=== PATIENT | female | born 1990 | race Two or more races ===

== ENCOUNTER 2022-08-08 16:36 | Inpatient (IN) | payer MEDICAID, OTHER ==
[~2022-08-08] VITALS: Ht 165.1 cm; Wt 81.9 kg
[2022-08-08] MEDS ORDERED: MAGNESIUM 2 G PREMIX 50 ML IV ONE (16:45)
[2022-08-08] MEDS ORDERED: ALBUTEROL (0.083%) 2.5MG/3ML NEB HHN STA (16:45)
[2022-08-08] MEDS ORDERED: IPRATROPIUM BROMIDE (0.02%) 0.5MG/2.5ML NEB HHN STA (16:45)
[2022-08-08] MEDS ORDERED: METHYLPREDNISOLONE SOD SUCC 125 MG/2 ML VIAL IV STA (16:45)
[2022-08-08 17:04] LABS: BASOPHILS % 0.4 % (0.0-2.0); EOSINOPHILS % 1.8 % (0.0-5.0); HEMATOCRIT. 34.7 % (36.0-48.0); HEMOGLOBIN. 11.6 g/dL (12.0-16.0); MEAN CORPUSCULAR HEMOGLOBIN 30.6 pg (28.0-32.0); MEAN CORPUSCULAR VOLUME 91.7 fL (81.0-99.0); MEAN PLATELET VOLUME 9.2 fl (7.4-10.4); MONOCYTES % 6.2 % (2.0-8.0); NEUTROPHILS % 77.6 % (40.0-76.0); PLATELET 342 x1000/uL (130-400); RED BLOOD CELL COUNT 3.78 mill/uL (4.2-5.4); RED CELL DISTRIBUTION WIDTH 13.9 % (11.6-14.6)
[2022-08-08 17:08] LABS: BG BASE EXCESS -5.3 mmol/L (-2.0-2.0); BG CARBOXYHEMOGLOBIN 0.2 % (0.5-1.5); BG DEOXYHEMOGLOBIN 0.4 % (0.0-5.0); BG HCO3 ACT 20.8 mmol/L (22.0-26.0); BG METHEMOGLOBIN 0.4 % (0.0-1.5); BG OXYGEN SATURATION 99.6 % (92.0-98.5); BG PCO2 42.4 mmHg (35.0-45.0); BG PH 7.308 (7.350-7.450); BG PO2 320.5 mmHg (75.0-100.0); BG SAMPLE SITE RIGHT RADIAL; BG VENT MODE MASK - BIPAP
[2022-08-08 17:13] LABS: CHLORIDE 111 mEq/L (98-107)
[2022-08-08 17:19] LABS: HCG SCREEN NEGATIVE
[2022-08-08] MEDS ORDERED: IPRATROPIUM/ALBUTEROL 0.5-3(2.5)MG/3ML NEB HHN PRN (21:45)
[2022-08-08] MEDS: IPRATROPIUM/ALBUTEROL 0.5-3(2.5)MG/3ML NEB HHN SCH (22:02)
[2022-08-09] VITALS (8 sets, daily range): BP systolic 88–127; BP diastolic 57–76
[2022-08-09] MEDS: IPRATROPIUM/ALBUTEROL 0.5-3(2.5)MG/3ML NEB HHN SCH ×5 (02:33→21:36)
[2022-08-09] MEDS: PROMETHAZINE HCL 6.25 MG/5 ML 118ML PO PRN ×2 (05:29→16:01)
[2022-08-09] MEDS ORDERED: POTASSIUM CHLORIDE 20MEQ TABLET SR PO NR (12:00)
[2022-08-09] MEDS ORDERED: ONDANSETRON HCL 4MG/2ML INJ IV PRN (13:15)
[2022-08-09] MEDS: METHYLPREDNISOLONE SOD SUCC 40 MG/ML VIAL IV SCH ×2 (13:18→21:03)
[2022-08-09] MEDS ORDERED: P20 MT (16:46)
[2022-08-09] MEDS ORDERED: FLUT1DIS3 INH (16:46)
[2022-08-09] MEDS ORDERED: FAMOTIDINE 20MG TABLET PO SCH (21:00)
[2022-08-10] VITALS (7 sets, daily range): BP systolic 91–127; BP diastolic 42–67
[2022-08-10] MEDS: IPRATROPIUM/ALBUTEROL 0.5-3(2.5)MG/3ML NEB HHN SCH ×4 (00:41→12:06)
[2022-08-10] MEDS: METHYLPREDNISOLONE SOD SUCC 40 MG/ML VIAL IV SCH (05:27)
[2022-08-10 14:53] LABS: *AMPHETAMINES SCREEN URINE NEGATIVE (NEGATIVE); *BARBITURATES SCREEN URINE NEGATIVE (NEGATIVE); *BENZODIAZEPINES SCREEN URINE NEGATIVE (NEGATIVE); *COCAINE SCREEN URINE NEGATIVE (NEGATIVE); METHADONE URINE SCREEN NEGATIVE (NEGATIVE); OPIATES URINE SCREEN NEGATIVE (NEGATIVE); PHENCYCLIDINE URINE SCREEN NEGATIVE (NEGATIVE)
[2022-08-10 14:54] LABS: CANNABINOID URINE SCREEN PRESUMTIVE POSITIVE (NEGATIVE)
== END 2022-08-10 11:33 | disposition home or self-care (01) | DRG 133 ==
LOC: ER 16:36 → MICUSO 19:31 → EDBEDREQTM 19:41 → EDBEDREQ 19:41 → 5EST 08-09 09:34 → 7WST 08-10 06:50
PROVIDERS: ADMIT Internal Medicine; ATTEND Internal Medicine
PROC: 5A09357 Assistance with Respiratory Ventilation, Less than 24 Consecutive Hours, Continuous Positive Airway Pressure (ICD-10-PCS; principal; 2022-08-08)
DX: J96.01 Acute respiratory failure with hypoxia (principal); E87.20 Acidosis, unspecified; J45.902 Unspecified asthma with status asthmaticus; D64.9 Anemia, unspecified; E87.6 Hypokalemia; D72.829 Elevated white blood cell count, unspecified
CPT/HCPCS: 36415; 36600; 71045; 80053; 80305; 82375; 82805; 83880; 84484; 84703; 85025; 93005; 94640; 94660; 99291; J2405; J2920; J2930; J3475; Q0169

== ENCOUNTER 2023-03-10 06:02 | Inpatient (IN) | payer MEDICAID, OTHER ==
[2023-03-09 21:40] VITALS: RESP 26
[~2023-03-10] VITALS: Ht 165.1 cm; Wt 93.9 kg
[2023-03-10] VITALS (9 sets, daily range): BP systolic 128–144; BP diastolic 73–78; PULSE 65–100; RESP 18–29; TEMP 98; O2SAT 100
[~2023-03-10 06:02] MED LIST: FLUT1DIS3 INH; P20 MT
[2023-03-10] MEDS ORDERED: PREDNISONE 20MG TABLET PO STA (06:09)
[2023-03-10] MEDS ORDERED: IPRATROPIUM BROMIDE (0.02%) 0.5MG/2.5ML NEB HHN STA ×2 (06:09→09:13)
[2023-03-10] MEDS ORDERED: ALBUTEROL (0.083%) 2.5MG/3ML NEB HHN STA ×2 (06:09→09:13)
[2023-03-10] MEDS ORDERED: PREDNISONE 20MG TABLET PO NR (07:30)
[2023-03-10 09:40] LABS: BG BASE EXCESS -7.2 mmol/L (-2.0-2.0); BG CARBOXYHEMOGLOBIN 0.3 % (0.5-1.5); BG DEOXYHEMOGLOBIN 0.4 % (0.0-5.0); BG FRACTION INSPIRED OXYGEN 80; BG HCO3 ACT 19.6 mmol/L (22.0-26.0); BG METHEMOGLOBIN 0.5 % (0.0-1.5); BG OXYGEN SATURATION 99.6 % (92.0-98.5); BG OXYHEMOGLOBIN 98.8 % (94.0-97.0); BG PCO2 44.4 mmHg (35.0-45.0); BG PH 7.263 (7.350-7.450); BG PO2 259.7 mmHg (75.0-100.0); BG SAMPLE SITE RIGHT RADIAL; BG TOTAL HEMOGLOBIN 12.5 g/dL (12.0-18.0)
[2023-03-10 09:46] LABS: HEMATOCRIT. 37.8 % (36.0-48.0); HEMOGLOBIN. 12.1 g/dL (12.0-16.0); MEAN CORPUSCULAR HEMOGLOBIN 30.3 pg (28.0-32.0); MEAN CORPUSCULAR HGB CONC 32.1 g/dL (31.0-37.0); MEAN CORPUSCULAR VOLUME 94.4 fL (81.0-99.0); MEAN PLATELET VOLUME 9.4 fl (7.4-10.4); PLATELET 311 x1000/uL (130-400); RED CELL DISTRIBUTION WIDTH 13.9 % (11.6-14.6); WHITE BLOOD COUNT 14.9 x1000/uL (4.5-11.0)
[2023-03-10 09:50] LABS: DIFFERENTIAL COMMENT 1
[2023-03-10 09:57] LABS: CHLORIDE 111 mEq/L (98-107); INDEX HEMOLYSI 1 (1-3); INDEX ICTERIC 1 (1-4); INDEX LIPEMIC 1 (1-3); POTASSIUM 3.9 mEq/L (3.5-5.1); SODIUM 140 mEq/L (136-145)
[2023-03-10 10:00] LABS: CALCIUM 8.5 mg/dL (8.5-10.1); CARBON DIOXIDE 26 mEq/L (21-32); UREA NITROGEN BLOOD 6 mg/dL (7-21)
[2023-03-10 10:07] LABS: ALANINE AMINOTRANSFERASE 15 IU/L (13-61); ALBUMIN 3.8 g/dL (3.4-5.0); ASPARTATE AMINOTRANSFERASE 18 IU/L (15-37); BILIRUBIN TOTAL 0.2 mg/dL (0.1-1.0); CREATININE 0.8 mg/dL (0.6-1.3); GLUCOSE 131 mg/dL (70-105); NT PRO B-TYPE NATRIURETIC PEP 65 pg/mL (5-125); PROTEIN TOTAL 7.6 g/dL (6.0-8.3)
[2023-03-10] MEDS ORDERED: MAGNESIUM 2 G PREMIX 50 ML IV STA (10:39)
[2023-03-10 11:00] LABS: PLATELET ESTIMATE NORMAL
[2023-03-10] MEDS ORDERED: IOHEXOL-350 100 ML BOTTLE ONE (14:10)
[2023-03-10] MEDS ORDERED: LORAZEPAM 0.5MG TABLET PO PRN (20:45)
[2023-03-10] MEDS ORDERED: IPRATROPIUM/ALBUTEROL 0.5-3(2.5)MG/3ML NEB HHN PRN ×2 (20:45)
[2023-03-10] MEDS: IPRATROPIUM/ALBUTEROL 0.5-3(2.5)MG/3ML NEB HHN SCH (21:40)
[2023-03-10] MEDS ORDERED: ACETAMINOPHEN 650MG/20.3ML UDC PO PRN (22:03)
[2023-03-10] MEDS: METHYLPREDNISOLONE SOD SUCC 125MG/2ML (ACT-O-VIAL) IV SCH (23:29)
[2023-03-11] VITALS (18 sets, daily range): BP systolic 110–134; BP diastolic 59–76; PULSE 70–114; RESP 15–20; TEMP 97.6–98; O2SAT 97–98
[2023-03-11] MEDS: IPRATROPIUM/ALBUTEROL 0.5-3(2.5)MG/3ML NEB HHN SCH ×5 (04:20→21:21)
[2023-03-11] MEDS: METHYLPREDNISOLONE SOD SUCC 125MG/2ML (ACT-O-VIAL) IV SCH ×4 (05:11→23:03)
[2023-03-11] MEDS: BUDESONIDE 0.5MG/2ML NEB HHN SCH ×2 (09:17→21:20)
[2023-03-11] MEDS ORDERED: FAMOTIDINE 20MG/2ML VIAL IV SCH (09:30)
[2023-03-11] MEDS: LEVOFLOXACIN 500MG TABLET PO SCH (10:44)
[2023-03-11 15:11] LABS: BG BASE EXCESS -0.5 mmol/L (-2.0-2.0); BG CARBOXYHEMOGLOBIN 0.5 % (0.5-1.5); BG METHEMOGLOBIN 0.4 % (0.0-1.5); BG OXYHEMOGLOBIN 96.1 % (94.0-97.0); BG PCO2 34.5 mmHg (35.0-45.0); BG PH 7.441 (7.350-7.450); BG PO2 85.3 mmHg (75.0-100.0); BG SAMPLE SITE RIGHT RADIAL; BG TOTAL HEMOGLOBIN 15.2 g/dL (12.0-18.0); BG VENT MODE NASAL CANNULA
[2023-03-11] MEDS ORDERED: MONTELUKAST SODIUM 10MG TABLET PO SCH (17:00)
[2023-03-11] MEDS: FAMOTIDINE 20MG/2ML VIAL IV SCH (21:03)
[2023-03-12] VITALS (10 sets, daily range): BP systolic 125; BP diastolic 74; PULSE 70–86; RESP 16–23; TEMP 97.1–98; O2SAT 97–100
[2023-03-12] MEDS: IPRATROPIUM/ALBUTEROL 0.5-3(2.5)MG/3ML NEB HHN SCH ×4 (01:02→08:37)
[2023-03-12] MEDS: METHYLPREDNISOLONE SOD SUCC 125MG/2ML (ACT-O-VIAL) IV SCH ×2 (05:22→12:09)
[2023-03-12] MEDS: BUDESONIDE 0.5MG/2ML NEB HHN SCH (08:37)
[2023-03-12] MEDS: FAMOTIDINE 20MG/2ML VIAL IV SCH (09:39)
[2023-03-12] MEDS ORDERED: P20 MT (11:36)
[2023-03-12] MEDS ORDERED: FLUT1DIS3 INH (11:36)
[2023-03-12] MEDS ORDERED: ALBU18HF2 IH (11:36)
[2023-03-12] MEDS ORDERED: IPRA3AMP9 NEB (11:37)
[2023-03-12] MEDS: LEVOFLOXACIN 500MG TABLET PO SCH (12:08)
[2023-03-12] MEDS ORDERED: IOHEXOL-350 100 ML BOTTLE ONE (12:53)
== END 2023-03-12 14:45 | disposition home or self-care (01) | DRG 141 ==
LOC: ER 06:02 → EDBEDREQ 13:09 → EDBEDREQTM 13:09 → MICUSO 15:18 → 5EST 21:18
PROVIDERS: ADMIT Internal Medicine; ATTEND Internal Medicine
PROC: 5A09457 Assistance with Respiratory Ventilation, 24-96 Consecutive Hours, Continuous Positive Airway Pressure (ICD-10-PCS; principal; 2023-03-10)
DX: J45.902 Unspecified asthma with status asthmaticus (principal); J96.00 Acute respiratory failure, unspecified whether with hypoxia or hypercapnia; E87.20 Acidosis, unspecified; D72.829 Elevated white blood cell count, unspecified
CPT/HCPCS: 36415; 36600; 71045; 71275; 80053; 82375; 82805; 83880; 84145; 85025; 85379; 93005; 94640; 94660; 99285; J2930; J3475; J3490; J7512; J7626; Q9967